=== PATIENT | female | born 1960 | race Caucasian/White ===

== ENCOUNTER 2021-09-06 11:17 | Outpatient (CLI) | payer OTHER, SELFPAY ==
[2021-09-06 20:15] LABS: Albumin* 4.3 g/dL (3.3-5.0); Chloride* 101 mmol/L (96-114)
[2021-09-06 20:16] LABS: Sodium* 137 mmol/L (135-149)
[2021-09-06 20:18] LABS: Alkaline Phosphatase* 100 U/L (40-150); Aspartate Amino Transferase* 47 U/L (12-35); Blood Urea Nitrogen* 15 mg/dL (7-30); Carbon Dioxide* 29 mmol/L (20-32); Creatinine* 0.9 mg/dL (0.5-1.5); Estimated Glomerular Filt Rate 71.83; Glucose* 102 mg/dL (60-115); Lipase* 65 U/L (23-300); Total Protein* 6.7 g/dL (6.0-8.3)
[2021-09-06 20:19] LABS: Alanine Aminotransferase* 38 U/L (4-35)
== END 2021-09-06 11:18 | disposition home or self-care (01) ==
PROVIDERS: PCP Family Medicine; Visit Provider Emergency Medicine
DX: R14.0 Abdominal distension (gaseous) (principal); R06.09 Other forms of dyspnea; R60.0 Localized edema
CPT/HCPCS: 80053; 83690; 87086

== ENCOUNTER 2021-09-19 13:43 | Outpatient (CLI) | payer OTHER, SELFPAY ==
[2021-09-19 14:48] VITALS: BP 160/90; PULSE 87; RESP 16
--- NOTE | 2021-09-19 15:02 | PM.ST ---
Stress Test Note Date Date Seen: 09/19/21 Date of test: 09/19/21 Providers Referring provider: Jose Domínguez Primary care provider: Jose Domínguez Stress test physician: Fazal Hampton Stress Test Note Stress test ordered: Stress Echo Indication for test: Dyspnea Results discussion: Patient is a very nice 61-year-old female presents for the above test after review of the cardiac stress test medical history form in discussion of the risks benefits side effects he would like to proceed pretest EKG shows normal sinus rhythm with a blood pressure 174/80 and a ventricular rate of 79. Standard Evaristo protocol is employed over a time course of 7 minutes. Test is terminated because of fatigue. And mild shortness of breath. There were no EKG changes suggestive of ischemia. There is no dysrhythmias noted Impression: Negative electrographic portion of stress echo, conditioning felt to be moderate Follow up suggested: Await cardiology read of ultrasound, clinical correlation with this will be needed, patient left this testing facility in excellent condition.
== END 2021-09-19 14:50 | disposition home or self-care (01) ==
LOC: STRESS 13:44
PROVIDERS: PCP Family Medicine; Visit Provider Emergency Medicine
DX: R06.09 Other forms of dyspnea (principal); R53.83 Other fatigue
CPT/HCPCS: 93016; 93325; 93351

== ENCOUNTER 2021-11-29 08:00 | Outpatient (CLI) | payer OTHER, SELFPAY ==
--- NOTE | 2021-11-29 08:15 | CRLHL7_ITS ---
For Patients: As a result of the Century Cures Act, medical imaging exams and procedure reports are released immediately into your electronic medical record. You may view this report before your referring provider. If you have questions, please contact your health care provider. Indication: Abdominal pain bloating Technique: Upper GI small bowel follow-through Comparison: No comparison Findings: Patient was given thin and thick barium as well as effervescent granules which were followed fluoroscopically. Esophagus appears normal there is no hiatal hernia no mass lesion. No stricturing or filling defects. Hypopharynx appears unremarkable minimal pooling of contrast in the piriform sinuses and vallecula. Stomach is incompletely distended but unremarkable. Small bowel appears unremarkable fast transit time into the colon with passage of contrast into the distal descending colon at approximately 30 minutes. Impression: 1. Unremarkable upper GI and small-bowel follow-through. Fast transit of contrast through the small bowel into the distal descending colon. 1.3min fluoro time Dictated by Maria D Hough MD @ 11/29/2021 10:33:12 AM (Electronically Signed)
== END 2021-11-29 08:01 | disposition home or self-care (01) ==
PROVIDERS: PCP Family Medicine
DX: R14.0 Abdominal distension (gaseous) (principal); D36.9 Benign neoplasm, unspecified site
CPT/HCPCS: 74246; 74248

== ENCOUNTER 2022-01-01 14:13 | Outpatient (CLI) | payer OTHER, SELFPAY ==
[2022-01-01 14:45] LABS: Creatinine* 0.9 mg/dL (0.5-1.5); Estimated Glomerular Filt Rate 72 ml/min
--- NOTE | 2022-01-01 15:00 | CRLHL7_ITS ---
For Patients: As a result of the Century Cures Act, medical imaging exams and procedure reports are released immediately into your electronic medical record. You may view this report before your referring provider. If you have questions, please contact your health care provider. Indication: Benign neuroendocrine tumors Technique: Contrast CT abdomen pelvis Comparison: No comparison Findings: Heart size is normal. The lung bases are clear. 2.7 centimeter lesion in the left dome of the dome liver with nodular peripheral enhancement probably related to hemangioma small enhancing lesion in the right dome of the liver posterior too small to characterize but could be related to small hemangioma. No biliary dilatation gallbladder pancreas unremarkable adrenal glands unremarkable spleen unremarkable kidneys unremarkable no abdominal aortic aneurysm. Normal appendix. Urinary bladder unremarkable. The bowel appears unremarkable No suspicious bony lesions are seen. Impression: 1. No acute findings in the abdomen or pelvis. 2.7 centimeter lesion in the left dome of the liver probably reflects a hemangioma appear too small to characterize enhancing lesion right posterior liver. Please note that all CT scans at this facility use dose modulation, iterative reconstruction, and/or weight-based dosing when appropriate to reduce radiation dose to as low as reasonably achievable. Dictated by Maria D Hough MD @ 01/01/2022 3:32:32 PM (Electronically Signed)
== END 2022-01-01 14:14 | disposition home or self-care (01) ==
LOC: CT 14:14
PROVIDERS: PCP Family Medicine; Visit Provider Internal Medicine Gastroenterology
DX: D3A.8 Other benign neuroendocrine tumors (principal); K76.9 Liver disease, unspecified
CPT/HCPCS: 36415; 74177; 82565; Q9967

== ENCOUNTER 2022-01-22 11:22 | Outpatient (CLI) | payer OTHER, SELFPAY | END 2022-01-22 11:23 | disposition home or self-care (01) | LOC: LKVREF 01-24 10:29 | PROVIDERS: PCP Family Medicine; Visit Provider Physician Assistant Medical | DX: Z01.818 Encounter for other preprocedural examination (principal); R30.0 Dysuria | CPT/HCPCS: 87086; 87186 ==

== ENCOUNTER 2022-03-22 14:00 | Outpatient (CLI) | payer OTHER, SELFPAY | END 2022-03-22 14:01 | disposition home or self-care (01) | PROVIDERS: PCP Family Medicine; Visit Provider Nurse Practitioner Family | DX: R30.0 Dysuria (principal); N39.0 Urinary tract infection, site not specified | CPT/HCPCS: 87086; 87186 ==

== ENCOUNTER 2022-05-10 10:38 | Outpatient (CLI) | payer OTHER, SELFPAY | END 2022-05-10 10:39 | disposition home or self-care (01) | PROVIDERS: PCP Family Medicine; Visit Provider Family Medicine | DX: Z00.00 Encounter for general adult medical examination without abnormal findings (principal); I10 Essential (primary) hypertension; E78.5 Hyperlipidemia, unspecified | CPT/HCPCS: 80053; 80061 ==

== ENCOUNTER 2022-11-01 08:12 | Outpatient (CLI) | payer OTHER, SELFPAY | END 2022-11-01 08:13 | disposition home or self-care (01) | LOC: NFLDREF 11-02 07:37 | PROVIDERS: PCP Family Medicine; Referring Provider Family Medicine; Visit Provider Family Medicine | DX: E78.5 Hyperlipidemia, unspecified (principal); R74.8 Abnormal levels of other serum enzymes | CPT/HCPCS: 80053; 80061 ==

== ENCOUNTER 2023-01-31 08:30 | Outpatient (CLI) | payer OTHER, SELFPAY | END 2023-01-31 08:31 | disposition home or self-care (01) | LOC: NFLDREF 02-01 11:38 | PROVIDERS: PCP Family Medicine; Referring Provider Family Medicine; Visit Provider Family Medicine | DX: E78.1 Pure hyperglyceridemia (principal) | CPT/HCPCS: 80061; 80076 ==

== ENCOUNTER 2023-03-04 10:32 | Outpatient (CLI) | payer OTHER, SELFPAY ==
--- NOTE | 2023-03-04 11:00 | CRLHL7_ITS ---
For Patients: As a result of the Century Cures Act, medical imaging exams and procedure reports are released immediately into your electronic medical record. You may view this report before your referring provider. If you have questions, please contact your health care provider. INDICATION: Neuroendocrine neoplasm of the duodenum. COMPARISON: 01/01/2022. TECHNIQUE: CT mm pelvis of IV contrast. ICD 370, 84 cc. FINDINGS: Liver and gallbladder: Stable ovoid 2.6 cm predominate low-attenuation lesion at the dome of the liver (series 3, image 15) which likely represents a hemangioma. Remainder is normal. Spleen: Normal. Pancreas: Normal. Adrenal glands: Normal. : No renal masses. No renal calculi. No hydronephrosis or ureteral dilatation. Normal bladder. Uterus is surgically absent. GI: No abnormal bowel distention, bowel wall thickening or inflammatory change. Specifically, no abnormal bowel wall thickening of the duodenum. Peritoneal: No free air or free fluid. Lymph nodes: No adenopathy. Lung bases: Lung bases are clear. Skeletal: Normal alignment. No fractures. IMPRESSION: 1. No interval change. 2. No acute findings. 3. Stable ovoid low-attenuation lesion at the dome of the liver which likely represent a hemangioma. 4. No adenopathy. Please note that all CT scans at this facility use dose modulation, iterative reconstruction, and/or weight-based dosing when appropriate to reduce radiation dose to as low as reasonably achievable. Dictated by Rufino Sunshine MD @ 03/06/2023 10:25:51 AM (Electronically Signed)
[2023-03-04 11:14] LABS: Creatinine* 0.8 mg/dL (0.5-1.5); Estimated Glomerular Filt Rate 82 ml/min
== END 2023-03-04 10:33 | disposition home or self-care (01) ==
LOC: CT 10:33
PROVIDERS: PCP Family Medicine; Visit Provider Internal Medicine Gastroenterology
DX: D3A.8 Other benign neuroendocrine tumors (principal); K76.9 Liver disease, unspecified
CPT/HCPCS: 36415; 74177; 82565; Q9967

== ENCOUNTER 2023-07-05 13:33 | Outpatient (CLI) | payer MEDICARE, SELFPAY | END 2023-07-05 13:34 | disposition home or self-care (01) | PROVIDERS: PCP Family Medicine; Visit Provider Family Medicine | DX: E78.2 Mixed hyperlipidemia (principal); I10 Essential (primary) hypertension | CPT/HCPCS: 80053; 80061 ==

== ENCOUNTER 2023-07-24 13:55 | Outpatient (CLI) | payer MEDICARE, SELFPAY ==
--- NOTE | 2023-07-24 14:00 | CRLHL7_ITS ---
For Patients: As a result of the Century Cures Act, medical imaging exams and procedure reports are released immediately into your electronic medical record. You may view this report before your referring provider. If you have questions, please contact your health care provider. DXA BONE MINERAL DENSITY STUDY Current height (in): 68.0. Weight (lb): 168.0. Menopause age: 49. Ethnicity: White. Reason for exam: Asymptomatic menopausal state. 1. Have you had a previous hip or vertebral fracture? No. 2. Have you had any fractures during your adult life which did not result from significant trauma (e.g., auto accident)? No. 3. Did either of your parents have a hip fracture? No. 4. Do you smoke? No. 5. Have you ever taken Glucocorticoids? No. 6. Do you have rheumatoid arthritis? No. 7. Do you have secondary osteoporosis? No. 8. Do you drink 3 or more alcoholic drinks per day? No. 9. Are you being treated for osteoporosis? No. 10. Have you ever taken any of the following medications: Actonel, Evista, Fosamax, Miacalcin, Reclast, Boniva, Forteo, HRT (i.e. estrogen/hormone therapy), Protelos, Prolia, Vitamin D, Calcium, other ??? please specify. ANSWER: Yes, vitamin D, calcium. 11. Do you have any of the following medical conditions: Anorexia or bulimia, asthma or emphysema, end stage renal disease, hyperparathyroidism, any seizure disorders, cancer, inflammatory bowel diseases, hysterectomy, other ??? please specify. ANSWER: Yes, hysterectomy. 12. What was your maximum height (inches)? 68. 13. Do you perform weight bearing exercise regularly? No. 14. Do you regularly consume dairy products? No. 15. Do you drink caffeinated beverages? No. 16. At what age did your period start? 11. 17. Are you premenopausal? No. 18. How many full term pregnancies have you had? 2. 19. Have you ever missed your period for more than 6 months in a row (not including or menopause)? No. TECHNIQUE: Bone mineral density study was performed using the [employer]. FINDINGS: The results of the study expressed as bone mineral density (BMD) are as follows: Lumbar spine L1 to L4: BMD: 1.130 g/cm2. T-score: 0.8. Z-score: 2.5 Neck Left: BMD: 0.857 g/cm2. T-score: 0.1. Z-score: 1.6 Right: BMD: 0.749 g/cm2. T-score: -0.9. Z-score: 0.6 Total Left: BMD: 1.102 g/cm2. T-score: 1.3. Z-score: 2.5 Right: BMD: 1.029 g/cm2. T-score: 0.7. Z-score: 1.9 IMPRESSION: Normal bone density. Howard Hernandez M.D. Body/Interventional Radiologist [email or web address] Transcribed: 12:29 pm DW/Dictated by: Howard Hernandez MD @ 07/25/2023 12:15:00 PM (Electronically Signed)
== END 2023-07-24 13:56 | disposition home or self-care (01) ==
LOC: RAD 13:56
PROVIDERS: PCP Family Medicine; Visit Provider Family Medicine
DX: Z78.0 Asymptomatic menopausal state (principal)
CPT/HCPCS: 77080